=== PATIENT | male | born 1985 | race Caucasian/White ===

== ENCOUNTER 2017-09-06 16:08 | Emergency (ER) | payer MEDICAID ==
--- NOTE | 2017-09-06 18:58 | EDM.PDOC ---
ED HPI GENERAL MEDICAL PROBLEM - General Chief Complaint: ENT Problem Stated Complaint: TEETH Time Seen by Provider: 09/06/17 18:47 Upper Face Pain Score (Numeric/FACES): 10 - Related Data Allergies Allergy/AdvReac Type Severity Reaction Status Date / Time No Known Allergies Allergy Verified 09/06/17 17:35 Home Meds: Home Meds NK [No Known Home Meds] 09/06/17 [History] Past Medical History Gastrointestinal History: Reports: Cholelithiasis Social & Family History - Tobacco Use Smoking Status *Q: Heavy Tobacco Smoker Years of Tobacco use: 16 Packs/Tins Daily: 1 - Caffeine Use Caffeine Use: Reports: Coffee, Energy Drinks, Soda - Recreational Drug Use Recreational Drug Use: No Course - Vital Signs Last Recorded V/S: Last Vital Signs Temp 36.2 C 09/06/17 17:35 Pulse 99 09/06/17 17:35 Resp 18 09/06/17 17:35 BP 173/75 H 09/06/17 17:35 Pulse Ox 99 09/06/17 17:35 Departure - Discharge Information Referrals: PCP,None [Primary Care Provider] -
--- NOTE | 2017-09-06 19:05 | EDM.PDOC ---
ED HPI GENERAL MEDICAL PROBLEM - General Chief Complaint: ENT Problem Stated Complaint: TEETH Time Seen by Provider: 09/06/17 18:47 Source of Information: Reports: Patient, RN Notes Reviewed History Limitations: Reports: No Limitations - History of Present Illness INITIAL COMMENTS - FREE TEXT/NARRATIVE: chief complaint Dental pain History of present illness 32-year-old male who with his moved from [place] about a month ago. This is to be close to some family members and to get away from the city. He's had a long history of dental problems and has had 9 teeth pulled in the last year. He states his largely because he consumes a large amount of soda, up to 24 cans a day. His teeth started bothering him again in the last couple of days, one on the right upper and several on the left lower. He states all of his teeth need to be pulled. He's been using ibuprofen which only minimally helps his pain. No fever no vomiting No other health concerns currently Upper Face Pain Score (Numeric/FACES): 10 - Related Data Allergies Allergy/AdvReac Type Severity Reaction Status Date / Time No Known Allergies Allergy Verified 09/06/17 17:35 Home Meds: Home Meds Acetaminophen/oxyCODONE [Percocet 325-5 MG] 1 - 2 each PO Q4H PRN #15 tab [Rx] Penicillin V Potassium 500 mg PO TID #30 tablet 09/06/17 [Rx] Past Medical History Gastrointestinal History: Reports: Cholelithiasis Social & Family History - Tobacco Use Smoking Status *Q: Heavy Tobacco Smoker Years of Tobacco use: 16 Packs/Tins Daily: 1 - Caffeine Use Caffeine Use: Reports: Coffee, Energy Drinks, Soda - Recreational Drug Use Recreational Drug Use: No ED ROS ENT - Review of Systems Review Of Systems: See Below Constitutional: Reports: No Symptoms HEENT: Reports: Dental Pain Respiratory: Reports: No Symptoms Cardiovascular: Reports: No Symptoms GI/Abdominal: Reports: No Symptoms Skin: Reports: No Symptoms ED EXAM, ENT - Physical Exam Exam: See Below Exam Limited By: No Limitations General Appearance: Alert, Mild Distress, Other (he appears uncomfortable) Eye Exam: Bilateral Eye: Normal Inspection Ears: Normal External Exam, Normal Canal, Hearing Grossly Normal, Normal TMs Nose: Normal Inspection, Normal Mucousa Mouth/Throat: Normal Oropharynx, Dental Pain, Dental Tenderness, Other (severe dental caries, he only has about 12 teeth left and most of them are damaged, moderate gingivitis, no abscess) Head: Atraumatic Neck: Normal Inspection. No: Lymphadenopathy (R), Lymphadenopathy (L) Respiratory/Chest: No Respiratory Distress, No Accessory Muscle Use Cardiovascular: Normal Peripheral Pulses Neurological: Alert, Oriented Psychiatric: Normal Mood Course - Vital Signs Last Recorded V/S: Last Vital Signs Temp 36.2 C 09/06/17 17:35 Pulse 99 09/06/17 17:35 Resp 18 09/06/17 17:35 BP 173/75 H 09/06/17 17:35 Pulse Ox 99 09/06/17 17:35 - Re-Assessments/Exams Free Text/Narrative Re-Assessment/Exam: 09/06/17 19:00 32-year-old male with severe dental problems by history, new pain in his right upper and left lower teeth, which are widely carious Very few teeth left Unfortunately he had weight nearly 3 hours in emerg He has a dental clinic he's contacting tomorrow Departure - Departure Time of Disposition: 19:04 Disposition: Home, Self-Care 01 Condition: Fair Clinical Impression: Dental caries - Discharge Information Prescriptions: Acetaminophen/oxyCODONE [Percocet 325-5 MG] 1 - 2 each PO Q4H PRN #15 tab PRN Reason: Moderate to severe pain Penicillin V Potassium 500 mg PO TID #30 tablet Instructions: Diet and Dental Disease Referrals: PCP,None [Primary Care Provider] - Forms: ED Department Discharge Additional Instructions: Follow-up with dentist as soon as possible. You will likely need to see an oral/dental surgeon as well
== END 2017-09-06 19:14 | disposition home or self-care (01) ==
LOC: JP.ED 16:08
DX: K02.9 Dental caries, unspecified (principal); F17.210 Nicotine dependence, cigarettes, uncomplicated
CPT/HCPCS: 99283

== ENCOUNTER 2018-01-12 17:32 | Emergency (ER) | payer MEDICAID ==
--- NOTE | 2018-01-12 18:58 | EDM.PDOC ---
ED HPI GENERAL MEDICAL PROBLEM - General Chief Complaint: ENT Problem Stated Complaint: TOOTH PAIN Time Seen by Provider: 01/12/18 18:46 Source of Information: Reports: Patient, Old Records, RN Notes Reviewed History Limitations: Reports: No Limitations - History of Present Illness INITIAL COMMENTS - FREE TEXT/NARRATIVE: 32-year-old gentleman presents emergency department day complaint of dental pain he has multiple dental caries he is established with the dentist who has started him on Augmentin he is almost completed a ten-day course he is set up to see the oral surgeon on the of this month for extraction of teeth and and fitting for dentures. His biggest issue is pain control he has been using ibuprofen but is in need of something stronger Right Lower Face Pain Score (Numeric/FACES): 10 - Related Data Allergies Allergy/AdvReac Type Severity Reaction Status Date / Time No Known Allergies Allergy Verified 09/06/17 17:35 Home Meds: Home Meds Amoxicillin/Potassium Clav [Amox-Clav 875-125 mg Tablet] 1 tab PO BID 01/12/18 [ History] Past Medical History HEENT History: Reports: Other (See Below) Other HEENT History: dental caries Gastrointestinal History: Reports: Cholelithiasis Social & Family History - Tobacco Use Smoking Status *Q: Heavy Tobacco Smoker Years of Tobacco use: 15 Packs/Tins Daily: 1 - Caffeine Use Caffeine Use: Reports: Coffee, Soda - Recreational Drug Use Recreational Drug Use: No ED ROS ENT - Review of Systems Review Of Systems: See Below Constitutional: Denies: Fever HEENT: Reports: Dental Pain Respiratory: Reports: No Symptoms Cardiovascular: Reports: No Symptoms ED EXAM, ENT - Physical Exam Exam: See Below Exam Limited By: No Limitations General Appearance: Alert, Moderate Distress Mouth/Throat: Normal Lips, Normal Oropharynx, Dental Abcess, Dental Tenderness, Other (Multiple dental caries with extremely poor dentition) Course - Vital Signs Last Recorded V/S: Last Vital Signs Temp 96.7 F 01/12/18 18:31 Pulse 125 H 01/12/18 18:31 Resp 16 01/12/18 18:31 BP 151/95 H 01/12/18 18:31 Pulse Ox 97 01/12/18 18:31 Departure - Departure Time of Disposition: 18:57 Disposition: Home, Self-Care 01 Condition: Fair Clinical Impression: Dental caries - Discharge Information Referrals: PCP,None [Primary Care Provider] - Additional Instructions: Use ibuprofen for baseline pain control, use Percocet as needed for breakthrough pain, please keep your appointment with the oral surgeon on the - Assessment/Plan Plan: Assessment Acuity = chronic Site and laterality = dental pain multiple caries Etiology = combination dental caries and trauma with poor dentition Manifestations = none Location of injury = Home Lab values = none Plan Did review the [place] prescription drug monitoring program I was satisfied there was no warning flags, elected to treat with Percocet 5/325 one tab by mouth 3 times a day when necessary total #20 he has appointment with oral surgery on the of this month This note was dictated using [employer] voice recognition software please call with any questions on syntax or grammar.
== END 2018-01-12 19:08 | disposition home or self-care (01) ==
LOC: JP.ED 17:32
DX: K02.9 Dental caries, unspecified (principal); F17.210 Nicotine dependence, cigarettes, uncomplicated
CPT/HCPCS: 99283

== ENCOUNTER 2018-08-21 20:27 | Emergency (ER) | payer MEDICAID ==
--- NOTE | 2018-08-21 21:07 | EDM.PDOC ---
ED HPI GENERAL MEDICAL PROBLEM - General Chief Complaint: ENT Problem Stated Complaint: TEETH Time Seen by Provider: 08/21/18 21:05 Source of Information: Reports: Patient History Limitations: Reports: No Limitations - History of Present Illness INITIAL COMMENTS - FREE TEXT/NARRATIVE: 33 year old male present with concerns regarding anterior lower mouth pain. Tooth pain started 3-4 days ago and has progressively worsened. Pain as a constant pressure and stabling pain that worsens with eating, chewing, hot or cold exposure. Patient admits to foul taste or drainage from painful tooth/ teeth. Patient has noted some slight facial swelling and along the gum line. Patient states has noted a chip in the effected teeth. Patient was at [place] dentist earlier this week. Patient has been prescribed PCN and Amoxicillin but not worsening symptoms. Patient has attempted to contacted a dentist for follow-up appointment in the near future. Patient does have a dentist appointment. Patient has taken any OTC some medications Tylenol and ibuprofen, to help with pain and/or swelling. The OTC medications minimally improved symptoms. Patient denies any fever, chills, sweats, and shortness of breath, difficulty breathing or swallowing, chest pain, diarrhea, constipation. No pain or burning with urination. No upper respiratory tract symptoms. left jaw Pain Score (Numeric/FACES): 8 - Related Data Allergies Allergy/AdvReac Type Severity Reaction Status Date / Time No Known Allergies Allergy Verified 08/21/18 21:02 Home Meds: Home Meds Chlorhexidine Gluconate [Peridex] 15 ml MM Q8H #10 mouthwash 08/21/18 [Rx] Ibuprofen [Motrin] 600 mg PO QID PRN 08/21/18 [History] Past Medical History HEENT History: Reports: Other (See Below) Other HEENT History: dental caries Gastrointestinal History: Reports: Cholelithiasis Social & Family History - Caffeine Use Caffeine Use: Reports: Coffee, Energy Drinks ED ROS ENT - Review of Systems Review Of Systems: ROS reveals no pertinent complaints other than HPI. ED EXAM, ENT - Physical Exam Exam: See Below Text/Narrative:: General: Alert attentive uncomfortable to due tooth pain. Eyes: EOMs intact. Conjunctivae without injection. Nose: Patent bilaterally. Mouth: Multiple Chipped tooth/teeth at gum noted bilateral anterior lower jaw. Tooth pain over anterior lower jaw with swelling gum line with slight buccal mucosal swelling noted. Dental apical abscess is with visualization or palpation over the affected tooth nerve root. Posterior oropharynx: No erythema, tonsillar exudates or enlargement noted. Neck: Supple. No midline tenderness. Full range of motion. No meningismus. Mild anterior cervical chain lymphadenopathy noted. Heart: Regular rate and rhythm without murmur. Chest: Clear to auscultation with good respiratory rate. No rhonchi, wheezes or rales heard throughout. No chest wall tenderness to palpation or retractions. Course - Vital Signs Last Recorded V/S: Last Vital Signs Temp 37.7 C 08/21/18 21:03 Pulse 108 H 08/21/18 21:03 Resp 18 08/21/18 21:03 BP 164/95 H 08/21/18 21: Pulse Ox 98 08/21/18 21:03 Departure - Departure Time of Disposition: 21:25 Disposition: Home, Self-Care 01 Condition: Good Clinical Impression: Dental caries, Dental abscess - Discharge Information Prescriptions: Chlorhexidine Gluconate [Peridex] 15 ml MM Q8H #10 mouthwash Referrals: PCP,None [Primary Care Provider] - Forms: ED Department Discharge Additional Instructions: 1. ANITBIOTIC DIRECTED. Antibiotics (Clindamycin). 2. IBUPROFEN or NAPROXEN WITH FOOD DIRECTED FOR INFLAMMATION, PAIN AND SWELLING. 3. BUPIVACAINE DENTAL BLOCK WILL LAST UP TO 48 HOURS AND MAY NOT COME BACK IF TAKING ANTIBIOTIC AND IBUPROFEN/NAPROXEN. 4. Tylenol (Acetaminophen) every 6-8 hours for mild to moderate pain 5. CALL YOUR DENTIST OF CHOICE FOR AVAILABLE APPOINTMENT. IF YOU DO NOT HAVE A DENTIST, YOU WILL BE GIVEN THE PHONE NUMBER FOR LOCAL PSYCHOLOGICAL ANTHROPOLOGIST DENTIST. [facility] in [place] 6. Return for repeat evaluation if increase, changes, new or worsen symptoms. Discussed medications given. Discussed NSAID, Tylenol, mouth wash and Sensodyne tooth paste. Patient is instructed to see or contact dentist of choice for evaluation and further treatment. Patient is given numerous follow-up dental care options. The patient has no questions or continued concerns at time of discharge. Discharge Instructions Dental Pain You have been seen today for a toothache. Your pain may be caused by an exposed nerve, an infection (pulpitis), a root abscess (pocket of pus), or other problems. You will need to see a dentist for a solution to your tooth problem. Emergency Department care is only to help control your problem until you can see a dentist; we cannot provide complete dental care. Today, we did not find any sign that your toothache was caused by any dangerous or life-threatening condition, but sometimes symptoms develop over time and cannot be found during an emergency visit, so it is very important that you follow up with your dentist. Please follow-up as instructed by your provider today. Return to the clinic or Local Emergency Department if: You develop a new fever over 100.4F. You cannot open your mouth normally, cannot move your tongue well, or cannot swallow. You have new or increased swelling of your face or neck. You develop drainage of pus or foul smelling material from around your tooth. What can I do to help myself? Take any antibiotic the provider may have prescribed for you today. Avoid very hot or very cold foods as both can cause pain. Make an appointment to see a dentist as soon as possible. Dentists are generally not on-staff at hospitals so we cannot refer to you to dentist but we may be able to provide a list of dental clinics to help you. If you were given a prescription for medicine here today, be sure toread all of the information (including the package insert) that comes with your prescription. This will include important information about the medicine, its side effects, and any warnings that you need to know about. The pharmacist who fills the prescription can provide more information and answer questions you may have about the medicine. If you have questions or concerns that the pharmacist cannot address, please call or return to the Emergency Department. Remember that you can always come back to the Emergency Department if you are not able to see your regular provider in the amount of time listed above, if you get any new symptoms, or if there is anything that worries you. - Problem List & Annotations (1) Mouth pain SNOMED Code(s): 245628829 Code(s): K13.79 - OTHER LESIONS OF ORAL MUCOSA Status: Acute Current Visit: Yes - Assessment/Plan Plan: 1. ANITBIOTIC DIRECTED. Antibiotics (Amoxicillin/PCN or Clindamycin). 2. IBUPROFEN or NAPROXEN WITH FOOD DIRECTED FOR INFLAMMATION, PAIN AND SWELLING. 3. BUPIVACAINE DENTAL BLOCK WILL LAST UP TO 48 HOURS AND MAY NOT COME BACK IF TAKING ANTIBIOTIC AND IBUPROFEN/NAPROXEN. 4. Tylenol (Acetaminophen) every 6-8 hours for mild to moderate pain 5. CALL YOUR DENTIST OF CHOICE FOR AVAILABLE APPOINTMENT. IF YOU DO NOT HAVE A DENTIST, YOU WILL BE GIVEN THE PHONE NUMBER FOR LOCAL PSYCHOLOGICAL ANTHROPOLOGIST DENTIST. 6. Return for repeat evaluation if increase, changes, new or worsen symptoms
== END 2018-08-21 21:37 | disposition home or self-care (01) ==
LOC: JP.ED 20:27
DX: K04.7 Periapical abscess without sinus (principal); K02.9 Dental caries, unspecified
CPT/HCPCS: 99282

== ENCOUNTER 2021-12-02 14:27 | Emergency (ER) | payer MEDICAID | END 2021-12-02 18:45 | disposition left against medical advice (07) | LOC: JP.ED 14:27 | DX: Z53.21 Procedure and treatment not carried out due to patient leaving prior to being seen by health care provider (principal) ==